=== PATIENT | female | born 1995 | race Caucasian/White ===

== ENCOUNTER 2019-09-30 21:56 | Emergency (ER) | payer MEDICAID ==
[~2019-09-30] VITALS: Ht 162.6 cm; Wt 90.3 kg
[2019-09-30 22:03] VITALS: Ht 162.6 cm; Wt 90.3 kg
[2019-10-01 00:42] VITALS: BP 125/89
== END 2019-10-01 00:42 | disposition home or self-care (01) ==
LOC: ED 21:56
DX: B37.3 Candidiasis of vulva and vagina (principal); L25.9 Unspecified contact dermatitis, unspecified cause; Z88.8 Allergy status to other drugs, medicaments and biological substances
CPT/HCPCS: 87491; 87591; J7512